=== PATIENT | female | born 1975 | race Two or more races ===

== ENCOUNTER 2018-09-05 04:00 | Emergency (ER) | payer OTHER ==
[2018-09-05 04:40] VITALS: BP 140/75; PULSE 90; TEMP 98.2; BMI 36.3
[2018-09-05] MEDS ORDERED: ACETAMINOPHEN 500 MG TABLET (FP) PO ONE (06:11)
--- NOTE | 2018-09-05 06:31 | PDOC ---
History of Present Illness - General Chief Complaint: Pain Stated Complaint: CHEST AND NECK PAIN Time Seen by Provider: 09/05/18 05:29 History Source: Patient, Old Records Exam Limitations: No Limitations - History of Present Illness Initial Comments: 43 y/o female presenting to [facility] ER via private auto complaining of left sided chest pain since Sunday (30 Aug 2018) and resolved episode of right sided ear pain around 01:00 this morning. Chest pain radiates to left shoulder, left arm, and left side of neck. It is made worse by exertion and improves with rest. Sought emergency evaluation at urging of family. Denies shortness of breath or breathlessness, orthopnea, lower extremity swelling, paroxysmal nocturnal dyspnea. Reports history of similar pain many years ago which precipitated the diagnosis of hypothyroidism. Denies skin changes, constipation, depressed mood, or slowed mentation. H/o HTN. Was previously managed with lisinopril, which was discontinued by PCP 2 months ago. PCP: [facility] Hx: - Anemia - HTN - Fibroids - Hypothyroidism, Levothyroxine dose last changed in February 2018. Surgical Hx: - Remove h/o breast reduction Past History - Past Medical History Allergies/Adverse Reactions: Allergies Allergy/AdvReac Type Severity Reaction Status Date / Time No Known Allergies Allergy Verified 05/02/18 11:11 Home Medications: Ambulatory Orders Iron 18 mg PO DAILY 05/02/18 Levothyroxine [Synthroid -] 150 mcg PO DAILY 05/02/18 Lisinopril 10 mg PO DAILY 05/02/18 Anemia: Yes COPD: No HTN: Yes Thyroid Disease: Yes - Immunization History Immunization Up to Date: Yes - Suicide/Smoking/Psychosocial Hx Smoking History: Never smoked Substance Use Type: None Review of Systems - Review of Systems Able to Perform ROS?: Yes Comments:: In addition to that documented in the HPI above, the additional ROS was obtained : Constitutional: Denies fevers or chills Eyes: Denies vision changes ENMT: Denies sore throat CV: per HPI Resp: Denies SOB GI: Denies vomiting or diarrhea *Physical Exam - Vital Signs Last Vital Signs Temp Pulse Resp BP Pulse Ox 98.2 F 90 19 140/75 100 09/05/18 04:33 09/05/18 04:33 09/05/18 04:33 09/05/18 04:33 09/05/18 05:23 - Physical Exam Comments: Constitutional: Well-developed, well-nourished female in no acute distress or obvious discomfort. Found semi-fowlers in hospital bed. Alert and oriented x4. Answered all questions appropriately and completely. Speech was non-labored, non -pressured. HEENT: Normocephalic. No obvious external signs of trauma. Hearing grossly normal. No nasal discharge. Neck is supple, trachea is midline. Cardiovascular/Chest: Regular rate and regular rhythm. No murmur, rubs, clicks , or gallops. Peripheral pulses: Radial pulses full. Chest pain reproducible with direct palpation of anterior chest wall and active and passive movement of left upper extremity. No costochondral tenderness. Respiratory: Breathing unlabored. Equal chest rise and fall. Clear to auscultation bilaterally. No stridor, no wheezing, no rhonchi. Gastrointestinal: abdomen is soft, non-tender, non-distended. Neuro: Alert and oriented. Moving all four extremities spontaneously. Skin: Warm, dry, and intact. No bruising, rashes, or other lesions. Psych: Affect: appropriate. Mood: normal. ED Treatment Course - LABORATORY CBC & Chemistry Diagram: 09/05/18 06:45 09/05/18 06:45 - RADIOLOGY Radiology Studies Ordered: Category Date Time Status CHEST X-RAY PORTABLE* [RAD] Stat Radiology 09/05/18 06:09 Ordered Medical Decision Making - Medical Decision Making *Reviewed vital signs, nursing notes, and prior visit documentation (if available). 43 y/o female with reproducible left sided chest and shoulder pain x 6 days. H/ o HTN. Afebrile. Vitals unremarkable for hypotension or tachycardia. Benign physical exam. Suspect MSK pain. D/D also includes but not limited to ACS, PE, pericardial effusion, GERD. Will obtain CBC, BMP, Troponin, EKG, CXR. Ordered Tylenol for symptom relief. 09/05/18 06:56 Pt signed out to resident Dr. Ramos after he was verbally appraised of the pt's HPI and current condition. Will follow up on pending CXR, labs, and EKG. *DC/Admit/Observation/Transfer Diagnosis at time of Disposition: Chest pain Qualifiers: Chest pain type: unspecified Qualified Code(s): R07.9 - Chest pain, unspecified - Discharge Dispostion Condition at time of disposition: Stable - Referrals - Patient Instructions - Post Discharge Activity
[2018-09-05] MEDS ORDERED: ACETAMINOPHEN 325 MG TABLET (FP) ONE (06:34)
--- NOTE | 2018-09-05 06:56 | PDOC ---
Attending Attestation - Resident Resident Name: Fernando Talamantes - ED Attending Attestation I have performed the following: I have examined & evaluated the patient, The case was reviewed & discussed with the resident, I agree w/resident's findings & plan, Exceptions are as noted - HPI HPI: 09/05/18 06:54 see mdm - Physicial Exam PE: 09/05/18 06:54 see mdm - Medical Decision Making 09/05/18 06:55 43F with L sided aching chest pain radiating down LUE, reproducible, no other complaints exam as noted in associated resident note atypical chest pain r/o acs f/u labs, cxr, ekg likely dc
--- NOTE | 2018-09-05 07:16 | PDOC ---
*Physical Exam - Vital Signs Last Vital Signs Temp Pulse Resp BP Pulse Ox 98.2 F 90 19 140/75 100 09/05/18 04:33 09/05/18 04:33 09/05/18 04:33 09/05/18 04:33 09/05/18 05:23 - Physical Exam Comments: 09/05/18 07:57 GENERAL: Awake, alert, and fully oriented, in no acute distress HEAD: No signs of trauma, normocephalic, atraumatic EYES: PERRLA, EOMI, sclera anicteric, conjunctiva clear NECK: Normal ROM, supple, no lymphadenopathy, JVD, or masses LUNGS: No distress, speaks full sentences, clear to auscultation bilaterally HEART: Regular rate and rhythm, normal S1 and S2, no murmurs, rubs or gallops, peripheral pulses normal and equal bilaterally. EXTREMITIES: Normal inspection, Normal range of motion, no edema. No clubbing or cyanosis. NEUROLOGICAL: Cranial nerves II through XII grossly intact. Normal speech, normal gait, no focal sensorimotor deficits SKIN: Warm, Dry, normal turgor, no rashes or lesions noted. ED Treatment Course - LABORATORY CBC & Chemistry Diagram: 09/05/18 06:45 09/05/18 06:45 - Medications Given in the ED: ED Medications Discontinued Medications Generic Name Dose Route Start Last Admin Trade Name [place] PRN Reason Stop Dose Admin Acetaminophen 975 mg 09/05/18 06:11 09/05/18 06:45 Tylenol - PO 09/05/18 06:12 975 mg ONCE ONE Administration Medical Decision Making - Medical Decision Making 09/05/18 07:[address] Talamantes. Patient is 43F here today with low-risk chest pain, likely MSK pain. Pending labs, ekg. EKG shows normal sinus rhythm with rate of 85. No st elevations/depressions. Normal axis. Normal intervals. No significant t wave abnormalities. Trop undetectable. Pending CBC. CXR shows no acute cardiopulmonary process. 09/05/18 07:54 CBC 9.7, last value 10.7, small leukocytosis. Patient is improved. Will discharge home. *DC/Admit/Observation/Transfer Diagnosis at time of Disposition: Chest pain Qualifiers: Chest pain type: unspecified Qualified Code(s): R07.9 - Chest pain, unspecified - Discharge Dispostion Disposition: HOME Condition at time of disposition: Good Decision to Admit order: No - Referrals - Patient Instructions Printed Discharge Instructions: DI for Atypical Chest Pain Additional Instructions: Please follow up with your primary care doctor. Please return to the ED if you have any new, worsening or concerning symptoms, especially increasing pain, shortness of breath, and fever. - Post Discharge Activity
[2018-09-05 07:18] LABS: ANION GAP 6 MMOL/L (8-16); BLOOD UREA NITROGEN 12 mg/dL (7-18); CALCIUM 8.6 mg/dL (8.5-10.1); CHLORIDE 105 mmol/L (98-107); CO2 27 mmol/L (21-32); CREATININE 0.6 mg/dL (0.55-1.3); GLUCOSE,RANDOM 94 mg/dL (74-106); POTASSIUM 4.4 mmol/L (3.5-5.1); SODIUM 138 mmol/L (136-145)
[2018-09-05 07:45] LABS: BASO % 0.8 % (0-2.0); EOS % 2.8 % (0-4.5); HEMATOCRIT 31.5 % (32.4-45.2); HEMOGLOBIN 9.7 GM/dL (10.7-15.3); MCHC 30.7 g/dl (32.0-36.0); MEAN CELL VOLUME 62.6 fl (80-96); MEAN PLT VOLUME 9.1 fl (7.5-11.1); MONO % 6.9 % (3.8-10.2); NEUT % 76.5 % (42.8-82.8); PLATELET COUNT 295 K/MM3 (134-434); RBC 5.03 M/mm3 (3.60-5.2); RDW 19.8 % (11.6-15.6); WHITE BLOOD COUNT 12.1 K/mm3 (4.0-10.0)
[2018-09-05 07:51] LABS: MCH 19.2 pg (25.7-33.7)
[2018-09-05 10:31] LABS: ANISOCYTOSIS 2+; MACROCYTOSIS 0; PLATELET ESTIMATE NORMAL
--- NOTE | 2018-09-06 13:51 | EKG ---
Test Reason : Blood Pressure : / mmHG Vent. Rate : 085 BPM Atrial Rate : 085 BPM P-R Int : 116 ms QRS Dur : 074 ms QT Int : 368 ms P-R-T Axes : 027 006 012 degrees QTc Int : 437 ms NORMAL SINUS RHYTHM MINIMAL VOLTAGE CRITERIA FOR LVH, MAY BE NORMAL VARIANT NO PREVIOUS ECGS AVAILABLE Confirmed by PATO BENNETT MD ([id number]) on 09/06/2018 1:50:52 PM Referred By: Confirmed By:PATO BENNETT MD
== END 2018-09-05 08:06 | disposition home or self-care (01) ==
LOC: JER 04:00
DX: R07.9 Chest pain, unspecified (principal); D64.9 Anemia, unspecified; I10 Essential (primary) hypertension; E03.9 Hypothyroidism, unspecified
CPT/HCPCS: 36415; 71045-TC-FY; 80048; 84484; 85025; 93005; 93010; 99282-25